=== PATIENT | male | born 1985 | race Two or more races ===

== ENCOUNTER 2020-09-02 04:52 | Emergency (ER) | payer SELFPAY ==
[~2020-09-02] VITALS: Ht 182.9 cm; Wt 79.4 kg
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
--- NOTE | 2020-09-02 05:21 | NUR ---
PATIENT TAKEN TO CT
--- NOTE | 2020-09-02 05:26 | NUR ---
PATIENT RETURNED FROM CT
[2020-09-02] MEDS ORDERED: ACETAMINOPHEN 325 MG TABLET ONE (06:52)
--- NOTE | 2020-09-02 07:01 | NUR ---
Patient discharged to home in stable condition. Written and verbal after care instructions given. Patient verbalizes understanding of instruction.
[2020-09-02 07:04] VITALS: BP 135/79
== END 2020-09-02 07:04 | disposition home or self-care (01) ==
LOC: ER 04:54
DX: S01.01XA Laceration without foreign body of scalp, initial encounter (principal); R51.9 Headache, unspecified; Z59.0 Homelessness; Y04.8XXA Assault by other bodily force, initial encounter; Y93.89 Activity, other specified; Y92.89 Other specified places as the place of occurrence of the external cause; Y99.8 Other external cause status
CPT/HCPCS: 70450-TC